=== PATIENT | male | born 1970 | race Caucasian/White ===

== ENCOUNTER 2021-06-02 18:41 | Emergency (ER) | payer BC ==
[2021-06-02] MEDS ORDERED: Lidocaine 1% 20 ML MDV INFILT ONE (18:59)
[2021-06-02] MEDS ORDERED: Diphtheria/Tetanus Toxoids,Adult (Td) 0.5 ML SDV IM ONE (18:59)
--- NOTE | 2021-06-02 18:59 | EDM.PDOC ---
ED HPI GENERAL MEDICAL PROBLEM - General Stated Complaint: CHAINSAW CUT LEFT LEG Time Seen by Provider: 06/02/21 18:45 Source of Information: Reports: Patient History Limitations: Reports: No Limitations - History of Present Illness INITIAL COMMENTS - FREE TEXT/NARRATIVE: Ciaran Tom is a 50 year old male that presents after an acute injury to his left leg that occurred while cutting wood just prior to ED arrival. He notes [place] was [place] property [place] wood when he was pulling back and the chainsaw was slowing down. The chainsaw kicked up into his left anterior thigh with medial laceration. This cut through his pants and he presents with leg laceration. Patient has any numbness, tingling, loss of function or pain with range of motion. He denies any previous injuries. He is not on blood thinners. Td previously : Yes, It may be up to 10 years since last td. not diabetic Presents here with his and friend. Patient works in the [employer] industry. - Related Data Allergies Allergy/AdvReac Type Severity Reaction Status Date / Time No Known Allergies Allergy Verified 06/02/21 19:33 Home Meds: Home Meds Omeprazole 1 tab PO TID 06/02/21 [History] atorvaSTATin [Lipitor] 1 tab PO DAILY 06/02/21 [History] Review of Systems - Review of Systems Review Of Systems: See Below (Patient denies any fever, runny nose, sore throat, cough, change in taste or smell. No diarrhea. Patient denies any numbness, tingling or weakness. He denies any pain with knee or ankle/toe movement. He is not sure his last tetanus. Denies history of bleeding diathesis. Not on blood thinners.) ED EXAM, GENERAL - Physical Exam Exam: See Below Exam Limited By: No Limitations General Appearance: Alert Head: Atraumatic Neck: Normal Inspection Respiratory/Chest: No Respiratory Distress Cardiovascular: Normal Peripheral Pulses, Other (Intact left DP and PT pulse. Normal cap refill.) Extremities: No Pedal Edema, Normal Capillary Refill. No: Slow Capillary Refill, Limited Range of Motion, Pallor, Redness Neurological: Alert, Oriented, Other (gcs 15. intact sensory of Left LE and toes/great web space. ). No: Sensory/Motor Deficit Psychiatric: Normal Affect Skin Exam: Normal Color, No Rash, Wound/Incision (13 cm total length lacerations (2 parallel lacerations to anterior distal left thigh). full rom of left knee without pain or evidence of involvement of extensors or joint. ) Lymphatic: No Adenopathy (Patient is a clean linear laceration just above his left patella. The wound margins are . I can visualize the underlying dermis. The knee through full range of motion shows full intact flexion and extension. There is no evidence of joint involvement. The wound is visualized completely) ED TRAUMA EXTREMITY PROCEDURES - Laceration/Wound Repair Left Upper Anterior Distal Leg Appearance: Subcutaneous, Linear, Clean Distal NVT: Neuro & Vascular Intact, No Tendon Injury Anesthetic Type: Local Local Anesthesia - Lidocaine (Xylocaine): 1% Plain Local Anesthesia - Bupivicaine (Marcaine): 0.5% with EPI Local Anesthetic Volume: Other (7 ml 50:50 mixture) Skin Prep: Chlorhexidine (Hibiciens), Saline Exploration/Debridement/Repair: Wound Explored, In a Bloodless Field, Explored to Base, No Foreign Material Found Closed With: Sutures Suture Size: 3-0 # of Sutures: 10 Suture Type: Nylon (interrupted including skin island), Interrupted, Other (inv) Suture Size: 3-0 # of Sutures: 8 (inverted interrupted vicryl) Repaired With: Vicryl Drain Placement: No Sterile Dressing Applied: Nurse Tetanus Status Addressed: Yes Complications: No Progress/Comments: Total length of the superior lacerations is 13 cm. Wound was copiously irrigated explored through full range of motion including initial 500 mls NS with Hibiclens prep and additional 500 mL through deep exposure and expiration. Wound was then closed in 2 layers. Deeply with inverted knot Vicryl times 10 interrupted and then superficially with interrupted Ethilon. Both sutures were 3-oh. Sterile dressing was placed. Bacitracin dressing placed. Tetanus updated. Supportive dressing and. Antibiotics initiated. The very deep aspect of this laceration does involve the very lateral aspect of the Supra patella bursa. As such antibiotics indicated prophylactically. Through full expiration I do not see evidence of extensor tendon involvement or joint involvement. patient aware the risk of occult fb or occult injuries, deeper injuries and understands reasons to retun Course - Vital Signs Text/Narrative:: Patient with above history and exam. His tetanus is updated. His left knee is put through full range of motion. Verbal consent for laceration repair. Wound was anesthetized with 1% Lidocaine combined with 0.5% Sensorcaine with epinephrine 50-50 mixture and 7 mils local injection via 27-gauge needle. Patient tolerated well. His tetanus was updated. Wound copiously irrigated e xplored and prepped. Explored deeply through full range of motion and re- irrigated with additional NS. wound was repaired in 2 layers. Keflex 500 p.o. now and prescription for the next 5 days. Tetanus is updated. Wound care instructions provided with the patient and reasons return. stable for discharge. see procedure note. Last Recorded V/S: Last Vital Signs Temp 36.0 C L 06/02/21 18:43 Pulse 68 06/02/21 18:43 Resp 16 06/02/21 18:43 BP 123/84 06/02/21 18:43 Pulse Ox 99 06/02/21 18:43 - Orders/Labs/Meds Orders: Active Orders 24 hr Category Date Time Status Procedure Tray at Bedside [RC] ASDIRECTED Care 06/02/21 18:59 Active Meds: Medications Discontinued Medications Generic Name Dose Route Start Last Admin Trade Name Moiq PRN Reason Stop Dose Admin Bacitracin 2 dose 06/02/21 19:56 06/02/21 20:17 Bacitracin Oint 1 Gm U/D Packet TOP 06/02/21 19:57 2 dose ONETIME ONE Administration Bacitracin Confirm 06/02/21 19:58 Bacitracin Oint 1 Gm U/D Packet Administered 06/02/21 19:59 Dose 2 dose .ROUTE .STK-MED ONE Bupivacaine HCl/Epinephrine Bitart 50 ml 06/02/21 19:01 06/02/21 19:30 Bupivacaine 0.5%/Epinephrine 1:200,000 50 Ml Mdv NERVRT 06/02/21 19:02 50 ml ONETIME ONE Administration Cephalexin 500 mg 06/02/21 20:01 06/02/21 20:17 Cephalexin 250 Mg Cap PO 06/02/21 20:02 500 mg ONETIME ONE Administration Lidocaine HCl 20 ml 06/02/21 18:59 06/02/21 19:30 Lidocaine 1% 20 Ml Mdv INFILT 06/02/21 19:00 20 ml ONETIME ONE Administration Tetanus/Diphtheria Toxoids 0.5 ml 06/02/21 18:59 06/02/21 19:28 Diphtheria/Tetanus Toxoids,Adult (Td) 0.5 Ml Sdv IM 06/02/21 19:00 0.5 ml .ONCE ONE Administration Departure - Departure Time of Disposition: 20:06 Disposition: Refer to Observation Clinical Impression: Laceration of leg - Discharge Information *PRESCRIPTION DRUG MONITORING PROGRAM REVIEWED*: No *COPY OF PRESCRIPTION DRUG MONITORING REPORT IN PATIENT PRIMO: No Instructions: Laceration Care, Adult, Sutures, Kiefer, or Adhesive Wound Closure, [id number] Referrals: PCP,None [Primary Care Provider] - Forms: ED Department Discharge Additional Instructions: Please keep the area clean dry and covered for 14 days. Sutures should be removed in 14 days. Take antibiotics until gone. Return if skin redness, fever with temp > 100.4, uncontrolled pain. Thank you for trusting us with your care today. Sepsis Event Note (ED) - Evaluation Sepsis Screening Result: No Definite Risk - Focused Exam Vital Signs: Vital Signs Temp Pulse Resp BP Pulse Ox 06/02/21 18:43 36.0 C L 68 16 123/84 99 - My Orders Last 24 Hours: My Active Orders 06/02/21 18:59 Procedure Tray at Bedside [RC] ASDIRECTED - Assessment/Plan Admission H&P: Please use this note as an admission H&P (Traumatic laceration explored to the its entire course. This includes full extensor and flexion of the left knee.) Last 24 Hours: My Active Orders 06/02/21 18:59 Procedure Tray at Bedside [RC] ASDIRECTED
[2021-06-02] MEDS ORDERED: Bupivacaine 0.5%/EPINEPHrine 1:200,000 50 ML MDV NERVRT ONE (19:01)
[2021-06-02] MEDS ORDERED: Bacitracin Oint 1 GM U/D Packet TOP ONE (19:56)
[2021-06-02] MEDS ORDERED: Bacitracin Oint 1 GM U/D Packet ONE (19:58)
[2021-06-02] MEDS ORDERED: Cephalexin 250 MG Cap PO ONE (20:01)
== END 2021-06-02 20:22 ==
LOC: JP.ED 18:41
DX: S81.812A Laceration without foreign body, left lower leg, initial encounter (principal); Z23 Encounter for immunization; W29.3XXA Contact with powered garden and outdoor hand tools and machinery, initial encounter
CPT/HCPCS: 12035; 90471; 90714; 99282; A9270; J3490